=== PATIENT | female | born 1980 | race Caucasian/White ===

== ENCOUNTER 2016-08-06 06:24 | Day surgery (SDC) | payer BC ==
[~2016-08-06] VITALS: Ht 170.2 cm; Wt 100.0 kg
--- NOTE | ~2016-08-06 | OR ---
PATIENT'S NAME: KARLA DUNHAM [facility] AGE: 36 Y [address] ROOM: [place] [id number] LOCATION: GPED ADMIT DATE: 08/06/2016 OR/Procedure Report DISCHARGE DATE: FAMILY PHYSICIAN: PHYSICIAN, NO ATTENDING PHYSICIAN: Tang Mendoza V SURGEON: Tnag Mendoza MD DUMPER BAILER OPERATOR: Ivy Cole PAC. DATE OF PROCEDURE: 08/06/2016 ADDENDUM: PREOPERATIVE DIAGNOSIS: Left thyroid mass. POSTOPERATIVE DIAGNOSIS: Left thyroid mass. OPERATION/PROCEDURE: 1. Left thyroid lobectomy/isthmusectomy. 2. Placement of EMG-monitoring endotracheal tube with intraoperative nerve monitoring (1hour). ESTIMATED BLOOD LOSS: Minimal. COMPLICATIONS: None. 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 TANG MENDOZA MD TVC/modl /[id number] d: 08/06/162118 t: 08/13/16 0722, OPERATIVE SUMMARY
--- NOTE | ~2016-08-06 | OR ---
PATIENT'S NAME: KARLA DUNHAM [facility] AGE: 36 Y [address] ROOM: [place] [address] LOCATION: GPED ADMIT DATE: 08/06/2016 OR/Procedure Report DISCHARGE DATE: FAMILY PHYSICIAN: PHYSICIAN, NO ATTENDING PHYSICIAN: Tang Mendoza V SURGEON: Tang Mendoza MD [employer]ARDS STRIPPER ETCHER: Ivy Cole PA-C DATE OF PROCEDURE: 08/06/2016 PREOPERATIVE DIAGNOSIS: Left thyroid mass. POSTOPERATIVE DIAGNOSIS: Left thyroid mass. OPERATIONS/PROCEDURES PERFORMED: 1. Left thyroid lobectomy, isthmusectomy. 2. Placement of EMG-monitored endotracheal tube with intraoperative nerve monitoring (1 hour). ANESTHESIA: General endotracheal anesthesia. ESTIMATED BLOOD LOSS: Minimal. COMPLICATIONS: None. 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 DESCRIPTION OF PROCEDURE: The patient was taken to the operating room, laid in supine position, and underwent general endotracheal anesthesia with an EMG- monitored endotracheal tube. Ground electrodes were placed on the right and left shoulders respectively. A shoulder roll placed. Head was placed in a sniffing position. Impedance interferences were noted to be within normal limits on the EMG monitor. The proposed incision line was marked, infiltrated with 1% lidocaine with epinephrine solution. Neck was prepped and draped in the usual sterile fashion using Betadine solution. Approximately 6 cm horizontal neck incision performed using a #15 blade. Subcutaneous tissues were divided using a #15 blade through the platysma. Subplatysmal flaps were elevated superiorly and inferiorly using Bovie electrocautery. This was secured using 2-0 silk sutures. Strap muscles were divided in the midline using Bovie electrocautery and reflected to the left. Blunt dissection was then performed along the lateral aspect of the thyroid lobe. Middle thyroid vein was divided using Harmonic scalpel. Superior pole was dissected bluntly with hemostats. Superior thyroid vessels were clamped, divided with Harmonic scalpel. They were then clamped and suture ligated using 3-0 silk suture. Isthmus was divided on the right, reflecting over the anterior wall of the PATIENT'S NAME: KARLA DUNHAM [facility] AGE: 36 Y [address] ROOM: [place] [address] LOCATION: ED ADMIT DATE: 08/06/2016 OR/Procedure Report DISCHARGE DATE: FAMILY PHYSICIAN: PHYSICIAN, NO ATTENDING PHYSICIAN: Tang Mendoza V trachea. Thyroid lobe was then reflected medially. Blunt dissection was then performed along the inferior pole. Recurrent laryngeal nerve was identified. Inferior thyroid vessels were then divided. Recurrent laryngeal nerve was followed up to the cricothyroid adventitia along the undersurface of thyroid and was divided using Harmonic scalpel. The Rahman ligament was then cross clamped using right angle, divided using a #15 blade. Specimen was removed and sent for frozen section pathology. The Rahman ligament was suture ligated using 3-0 silk suture. Frozen section pathology was consistent with probable follicular adenoma, no evidence of atypical epithelium. Neck was irrigated with copious amounts of bacitracin solution. Hemostasis was noted to be adequate. Recurrent laryngeal nerve was stimulated with good train of response indicating intact nerve function. Hemostasis was adequate. Strap muscles were approximated in the midline using a running interlocking 3-0 Vicryl suture. Platysma was reapproximated with interrupted 3-0 Vicryl. Skin closure performed with 4-0 Monocryl. Steri-Strips and occlusive dressing was applied. The patient tolerated the procedure well and was aroused, extubated, and discharged from the operating room to the recovery room in satisfactory condition. MD DAVID CONRAD/modl /[id number] d: 08/06/162129 t: 08/13/16 0727, OPERATIVE SUMMARY
[~2016-08-06 06:24] MED LIST: COREG6.25 MG PO; PRILOSEC20 MG PO
[2016-08-07] MEDS ORDERED: ACETAMINOPHEN-1 EAC1 PO (08:33)
== END 2016-08-07 09:05 | disposition disaster alternative care site (69) ==
LOC: GPOC 06:24 → GSDC 06:24 → GMSU 06:24 → GPED 11:03 → GPOC 15:00 → GSDC 08-07 09:05
PROC: 0GTG0ZZ Resection of Left Thyroid Gland Lobe, Open Approach (ICD-10-PCS; principal; 2016-08-06)
DX: D34 Benign neoplasm of thyroid gland (principal); I10 Essential (primary) hypertension; K21.9 Gastro-esophageal reflux disease without esophagitis; F17.210 Nicotine dependence, cigarettes, uncomplicated; Z79.899 Other long term (current) drug therapy
CPT/HCPCS: J1100; J2001; J2175; J2250; J2405; J2550; J3010; J7030